=== PATIENT | female | born 1995 | race Caucasian/White ===

== ENCOUNTER 2020-05-01 16:31 | Emergency (ER) | payer MEDICAID ==
[~2020-05-01] VITALS: Ht 172.7 cm; Wt 65.0 kg
[2020-05-01] MEDS ORDERED: ONDANSETRON HCL 4MG/2ML INJ ONE (17:14)
[2020-05-01] MEDS ORDERED: MORPHINE SULFATE 4 MG/ML CPJ (NOT FOR IM USE) IV ONE ×2 (17:15→19:00)
[2020-05-01 17:19] LABS: COLOR URINE DK YELLOW (YELLOW); KETONES URINE TRACE (NEGATIVE); LEUKOCYTE ESTERASE URINE TRACE (NEGATIVE); NITRITE URINE NEGATIVE (NEGATIVE); OCCULT BLOOD URINE NEGATIVE (NEGATIVE); PROTEIN URINE TRACE (NEGATIVE); SPECIFIC GRAVITY URINE 1.025 (1.005-1.030)
[2020-05-01 17:28] LABS: BASOPHILS % 0.4 % (0.0-2.0); EOSINOPHILS % 1.9 % (0.0-5.0); HEMATOCRIT. 39.3 % (36.0-48.0); HEMOGLOBIN. 13.4 g/dL (12.0-16.0); MEAN CORPUSCULAR VOLUME 93.8 fL (81.0-99.0); MEAN PLATELET VOLUME 11.2 fl (7.4-10.4); MONOCYTES % 7.4 % (2.0-8.0); NEUTROPHILS % 55.3 % (40.0-76.0); PLATELET 173 x1000/uL (130-400); RED BLOOD CELL COUNT 4.18 mill/uL (4.2-5.4); RED CELL DISTRIBUTION WIDTH 13.4 % (11.6-14.6)
[2020-05-01 17:33] LABS: CHLORIDE 108 mEq/L (98-107)
[2020-05-01 17:41] LABS: CLARITY URINE SL HAZY (CLEAR)
[2020-05-01 17:44] LABS: B-HCG QUANTITATIVE < 1 mIU/mL (<3)
[2020-05-01] MEDS ORDERED: KETOROLAC 15MG/ML VIAL IV ONE (20:00)
[2020-05-01 23:59] VITALS: BP 116/72
== END 2020-05-02 00:04 | disposition home or self-care (01) ==
LOC: ER 16:31
DX: N83.202 Unspecified ovarian cyst, left side (principal)
CPT/HCPCS: 36415; 74176; 76830; 76856; 80053; 81003; 81025; 84702; 85025; 86850; 86900; 86901; 96374; 96375; 96376; 99285; J1885; J2270; J2405